=== PATIENT | female | born 2000 | race Caucasian/White ===

== ENCOUNTER 2019-11-04 09:45 | Inpatient (IN) | payer MEDICAID ==
[~2019-11-04] VITALS: Ht 162.6 cm; Wt 104.3 kg
[2019-11-04] MEDS ORDERED: LR 1,000 ML IV SCH (10:04)
[2019-11-04] MEDS ORDERED: OXYTOCIN/0.9 % SODIUM CHLORIDE 1,000 ML IV SCH (10:04)
[2019-11-04] MEDS ORDERED: LR 1,000 ML IV ONE (10:04)
[2019-11-04] MEDS ORDERED: ROPIVACAINE HCL/PF 0.2% 200 ML ONE (10:40)
[2019-11-04] MEDS ORDERED: fentaNYL CITRATE/PF 100 MCG/2 ML AMP ONE (10:40)
[2019-11-04 10:52] LABS: BASOPHILS % (AUTO) 0.5 % (0.0-2.0); EOSINOPHILS # (AUTO) 0.1 K/uL (0.0-0.4); EOSINOPHILS % (AUTO) 0.6 % (0.0-4.0); HEMATOCRIT 31.3 % (36-48); HEMOGLOBIN 10.6 g/dL (12.0-16.0); LYMPHOCYTES # (AUTO) 1.4 K/uL (1.0-5.5); LYMPHOCYTES % (AUTO) 17.2 % (20.5-51.5); MEAN CORPUSCULAR HEMOGLOBIN 29 pg (27-31); MEAN CORPUSCULAR HGB CONC 34 % (32-36); MEAN CORPUSCULAR VOLUME 87 fL (79.0-98.0); MONOCYTES # (AUTO) 0.4 K/uL (0.0-1.0); MONOCYTES % (AUTO) 5.1 % (1.7-9.3); NEUTROPHILS # (AUTO) 6.4 K/uL (1.8-7.7); NEUTROPHILS % (AUTO) 76.6 % (40.0-70.0); PLATELET COUNT (AUTO) 166 K/uL (130-430); RED BLOOD CELL COUNT(AUTO) 3.62 MIL/uL (4.2-6.2); RED CELL DISTRIBUTION WIDTH 14.4 % (9.0-15.0); WHITE BLOOD COUNT (AUTO) 8.4 K/uL (4.8-10.8)
[2019-11-04 11:18] VITALS: BP_SYST 123
[2019-11-04] MEDS ORDERED: AMPICILLIN SODIUM 2 GM in NS 100 ML IV ONE ×4 (11:30)
[2019-11-04] MEDS ORDERED: GENTAMICIN 120 mg/100 mL NS 100 ML IV ONE (11:30)
[2019-11-04] MEDS ORDERED: OXYTOCIN/0.9 % SODIUM CHLORIDE 1,000 ML IV ONE (13:59)
[2019-11-04] MEDS ORDERED: METHYLERGONOVINE MALEATE 0.2 MG TABLET PO PRN (14:00)
[2019-11-04] MEDS ORDERED: DERMOPLAST SPRAY TP PRN (14:00)
[2019-11-04] MEDS ORDERED: OXYCODONE/ACETAMINOPHEN 5-325 TABLET PO PRN ×2 (14:00)
[2019-11-04] MEDS ORDERED: HYDROCORTISONE 0.5%, 28.35 GM TOPICAL CREAM TP PRN (14:00)
[2019-11-04] MEDS ORDERED: LANOLIN 7 GM OINT. TP PRN (14:00)
[2019-11-04] MEDS ORDERED: AMPICILLIN SODIUM 1 GM in NS 50 ML IV SCH (16:00)
[2019-11-04] MEDS ORDERED: WITCH HAZEL LEAF 1 MED.PAD MED.PAD TP PRN (16:30)
[2019-11-04] MEDS: IBUPROFEN 800 MG TABLET PO PRN ×2 (17:15→23:46)
[2019-11-04] MEDS ORDERED: TEMAZEPAM 15 MG CAPSULE PO PRN (21:00)
[2019-11-04] MEDS: DOCUSATE SODIUM 100 MG CAPSULE PO PRN (23:46)
[2019-11-05] MEDS: IBUPROFEN 800 MG TABLET PO PRN ×2 (06:04→12:24)
[2019-11-05 06:59] LABS: HEMATOCRIT 28.9 % (36-48); HEMOGLOBIN 9.8 g/dL (12.0-16.0)
[2019-11-05] MEDS: DOCUSATE SODIUM 100 MG CAPSULE PO PRN (10:37)
[2019-11-05] MEDS ORDERED: FENT2mCg/mL-ROPIVA0.2%/NS EPID 200 ML EP SCH (14:30)
== END 2019-11-05 16:00 | disposition home or self-care (01) | DRG 560 ==
LOC: SPU 09:45
PROVIDERS: ADMIT Obstetrics & Gynecology; ATTEND Obstetrics & Gynecology
PROC: 10E0XZZ Delivery of Products of Conception, External Approach (ICD-10-PCS; principal; 2019-11-04)
PROC: 0HQ9XZZ Repair Perineum Skin, External Approach (ICD-10-PCS; 2019-11-04)
PROC: 10907ZC Drainage of Amniotic Fluid, Therapeutic from Products of Conception, Via Natural or Artificial Opening (ICD-10-PCS; 2019-11-04)
PROC: 3E0R3BZ Introduction of Anesthetic Agent into Spinal Canal, Percutaneous Approach (ICD-10-PCS; 2019-11-04)
PROC: 00HU33Z Insertion of Infusion Device into Spinal Canal, Percutaneous Approach (ICD-10-PCS; 2019-11-04)
DX: O70.0 First degree perineal laceration during delivery (principal); R71.0 Precipitous drop in hematocrit; Z37.0 Single live birth; Z3A.40 40 weeks gestation of pregnancy
CPT/HCPCS: 36415; 81002-TC; 85018-TC; 85025; 86592; 86886; 86900; 86901; J0290; J1580; J3010

== ENCOUNTER 2021-03-11 12:20 | Emergency (ER) | payer MEDICAID ==
[~2021-03-11] VITALS: Ht 162.6 cm; Wt 86.2 kg
[2021-03-11 12:32] VITALS: BP_SYST 134
[2021-03-11] MEDS ORDERED: LIDOCAINE 1%, 20 ML MDV 20 ML ONE (16:31)
[2021-03-11] MEDS ORDERED: BACITRACIN 1 GM OINT TP ONE (18:10)
[2021-03-11 18:16] VITALS: BP_SYST 134
== END 2021-03-11 18:16 | disposition home or self-care (01) ==
LOC: SED 12:20
DX: S61.213A Laceration without foreign body of left middle finger without damage to nail, initial encounter (principal); W26.8XXA Contact with other sharp object(s), not elsewhere classified, initial encounter; Y93.89 Activity, other specified; Y92.89 Other specified places as the place of occurrence of the external cause; Y99.8 Other external cause status
CPT/HCPCS: 73140; 99283; J2001

== ENCOUNTER 2021-03-13 17:07 | Emergency (ER) | payer MEDICAID ==
[~2021-03-13] VITALS: Ht 162.6 cm; Wt 86.2 kg
[2021-03-13 17:18] VITALS: BP_SYST 122
[2021-03-13] MEDS ORDERED: BACITRACIN 1 GM OINT TP ONE (17:30)
[2021-03-13 17:35] VITALS: BP_SYST 122
== END 2021-03-13 17:35 | disposition home or self-care (01) ==
LOC: SED 17:07
DX: Z48.00 Encounter for change or removal of nonsurgical wound dressing (principal)
CPT/HCPCS: 99282

== ENCOUNTER 2021-03-20 15:42 | Emergency (ER) | payer MEDICAID ==
[~2021-03-20] VITALS: Ht 162.6 cm; Wt 86.2 kg
[2021-03-20 15:50] VITALS: BP_SYST 128
--- NOTE | 2021-03-20 15:53 | NUR ---
Patient to ER bed 7 to gown for evaluation. Side rails up. Report given to Jennifer EDGE.
--- NOTE | 2021-03-20 16:05 | NUR ---
pt came in for suture removal, last week cut left index finger cutting vegetables and required sutures.
--- NOTE | 2021-03-20 16:20 | NUR ---
ER at bedside examining patient.
--- NOTE | 2021-03-20 16:30 | NUR ---
Finger cleaned with water and hydrogen peroxide, dressing reapplied, Dr. Baumann instructed pt to return in 3 days for suture removal
--- NOTE | 2021-03-20 16:35 | NUR ---
Patient given written and verbal discharge instructions and verbalizes understanding. Dr. Baumann discussed with patient the results and treatment provided. Patient in stable condition. ID arm band removed. Patient educated on pain management and to f/u in 3 days for suture removal. Pain Scale 3. Opportunity for questions provided and answered. Medication side effect fact sheet provided.
[2021-03-20 16:36] VITALS: BP_SYST 128
== END 2021-03-20 16:35 | disposition home or self-care (01) ==
LOC: SED 15:42
DX: Z48.00 Encounter for change or removal of nonsurgical wound dressing (principal)
CPT/HCPCS: 99282

== ENCOUNTER 2021-03-23 13:45 | Emergency (ER) | payer MEDICAID ==
[~2021-03-23] VITALS: Ht 162.6 cm; Wt 86.2 kg
[2021-03-23 13:45] VITALS: BP_SYST 121
[2021-03-23] MEDS ORDERED: AMOX-426 PO (14:24)
[2021-03-23] MEDS ORDERED: BACITRACIN 1 GM OINT TP ONE (14:42)
[2021-03-23 14:43] VITALS: BP_SYST 121
[2021-03-23] MEDS ORDERED: ADENOSINE 6MG/2ML VIAL ONE (15:21)
== END 2021-03-23 14:43 | disposition home or self-care (01) ==
LOC: SED 13:45
DX: S61.211D Laceration without foreign body of left index finger without damage to nail, subsequent encounter (principal); Z48.02 Encounter for removal of sutures; W26.8XXD Contact with other sharp object(s), not elsewhere classified, subsequent encounter
CPT/HCPCS: 99283; J0153

== ENCOUNTER 2021-03-25 14:48 | Emergency (ER) | payer MEDICAID ==
[~2021-03-25] VITALS: Ht 162.6 cm; Wt 86.2 kg
[~2021-03-25 14:48] MED LIST: AMOX-426 PO
[2021-03-25 14:52] VITALS: BP_SYST 109
[2021-03-25 15:32] LABS: BASOPHILS % (AUTO) 0.7 % (0.0-2.0); EOSINOPHILS # (AUTO) 0.1 K/uL (0.0-0.4); EOSINOPHILS % (AUTO) 1.8 % (0.0-4.0); HEMATOCRIT 39.4 % (36-48); HEMOGLOBIN 13.2 g/dL (12.0-16.0); LYMPHOCYTES % (AUTO) 31.5 % (20.5-51.5); MEAN CORPUSCULAR HEMOGLOBIN 30 pg (27-31); MEAN CORPUSCULAR HGB CONC 34 % (32-36); MEAN CORPUSCULAR VOLUME 91 fL (79.0-98.0); MONOCYTES # (AUTO) 0.4 K/uL (0.0-1.0); MONOCYTES % (AUTO) 6.4 % (1.7-9.3); NEUTROPHILS # (AUTO) 3.7 K/uL (1.8-7.7); NEUTROPHILS % (AUTO) 59.6 % (40.0-70.0); PLATELET COUNT (AUTO) 218 K/uL (130-430); RED BLOOD CELL COUNT(AUTO) 4.34 MIL/uL (4.2-6.2); RED CELL DISTRIBUTION WIDTH 12.5 % (9.0-15.0); WHITE BLOOD COUNT (AUTO) 6.2 K/uL (4.8-10.8)
[2021-03-25 15:39] LABS: ANION GAP 8 (5-15); CALCIUM 8.5 mg/dL (8.4-11.0); CHLORIDE 103 mmol/L (98-107); CREATININE 0.53 mg/dL (0.55-1.30); GLUCOSE 84 mg/dL (70-99); POTASSIUM 4.4 mmol/L (3.5-5.1); SODIUM SERUM 139 mmol/L (136-145); UREA NITROGEN, BLOOD 11 mg/dL (8-21)
[2021-03-25 15:45] LABS: ALANINE AMINOTRANSFERASE 25 U/L (12-78); ALBUMIN 3.7 g/dL (3.4-4.8); ASPARTATE AMINOTRANSFERASE 17 U/L (10-37); TOTAL BILIRUBIN 0.2 mg/dL (0.0-1.0)
[2021-03-25 15:48] LABS: GFR AFRICAN AMERICAN 186 mL/min (>90)
[2021-03-25 15:54] LABS: C-REACTIVE PROTEIN QUANT < 0.2 mg/dL (0-0.5)
[2021-03-25] MEDS ORDERED: BACITRACIN 1 GM OINT TP ONE (16:00)
[2021-03-25 16:31] VITALS: BP_SYST 110
== END 2021-03-25 16:31 | disposition home or self-care (01) ==
LOC: SED 14:48
DX: T81.31XA Disruption of external operation (surgical) wound, not elsewhere classified, initial encounter (principal); S61.211D Laceration without foreign body of left index finger without damage to nail, subsequent encounter; Z79.899 Other long term (current) drug therapy; W26.0XXD Contact with knife, subsequent encounter
CPT/HCPCS: 36415; 73140-TC; 80053; 83605; 85025; 86140; 99284

== ENCOUNTER 2021-11-26 18:18 | Emergency (ER) | payer MEDICAID ==
[~2021-11-26] VITALS: Ht 162.6 cm; Wt 81.6 kg
[2021-11-26 19:30] VITALS: BP_SYST 118
--- NOTE | 2021-11-26 19:30 | NUR ---
pt. bib with multiple c/o, ranging from 1 month to days, c/o cough X 1 month, rib cage pain 06/19 that pt. states is from coughing, dizziness and nausea X 1 week
--- NOTE | 2021-11-26 20:08 | NUR ---
ER in tent examining patient.
--- NOTE | 2021-11-26 20:56 | NUR ---
Pt. refused Covid swab
--- NOTE | 2021-11-26 21:00 | NUR ---
Dr. Willingham outside discussed tx. options and reason for Covid PCR test, pt. cont. to refuse
[2021-11-26] MEDS ORDERED: BENZ100C92 PO (21:05)
[2021-11-26] MEDS ORDERED: ONDA-8 TL (21:05)
--- NOTE | 2021-11-26 21:22 | NUR ---
Patient given written and verbal discharge instructions and verbalizes understanding. ER Dr. Willingham discussed with patient the results and treatment provided. Patient in stable condition. ID arm band removed. Rx of benzonatate, zofran given. Patient educated on pain management and to follow up with PMD. Pain Scale 4. Opportunity for questions provided and answered. Medication side effect fact sheet provided.
[2021-11-26 21:23] VITALS: BP_SYST 106
== END 2021-11-26 21:23 | disposition home or self-care (01) ==
LOC: SED 18:18
DX: R07.89 Other chest pain (principal); R11.0 Nausea; B34.9 Viral infection, unspecified
CPT/HCPCS: 71045; 99283; 99284

== ENCOUNTER 2023-02-28 22:53 | Emergency (ER) | payer MEDICAID ==
[~2023-02-28] VITALS: Ht 162.6 cm; Wt 90.7 kg
[~2023-02-28 22:53] MED LIST changes: +BENZ100C92 PO; +IBUP-1971 PO; +ONDA-8 TL
[2023-02-28 22:59] VITALS: BP_SYST 108
[2023-02-28] MEDS ORDERED: AMOX500C2 PO (23:41)
[2023-02-28] MEDS ORDERED: TRAM50TA2 PO (23:41)
[2023-02-28] MEDS ORDERED: IBUP-1969 PO (23:41)
[2023-02-28] MEDS ORDERED: IBUPROFEN 600 MG TABLET ONE (23:55)
[2023-03-01] VITALS: BP_SYST 128
[2023-03-01] MEDS ORDERED: HYDROcodone/ACETAMIN 5-325 MG TAB (NORCO/ VICODIN) PO ONE
[2023-03-01] MEDS ORDERED: IBUPROFEN 600 MG TABLET PO ONE
== END 2023-03-01 | disposition home or self-care (01) ==
LOC: SED 22:53
DX: K04.7 Periapical abscess without sinus (principal); K08.89 Other specified disorders of teeth and supporting structures; Z79.899 Other long term (current) drug therapy
CPT/HCPCS: 99283